=== PATIENT | female | born 1945 | race Caucasian/White ===

== ENCOUNTER 2022-01-04 13:54 | Emergency (ER) | payer MEDICARE, OTHER ==
[~2022-01-04] VITALS: Ht 162.6 cm; Wt 72.1 kg
[2022-01-04] MEDS ORDERED: GLIPIZIDE-METF1 EAC2 PO (15:05)
[2022-01-04] MEDS ORDERED: [UNRECOGNIZED DRUG - OTHER] PO (15:05)
[2022-01-04] MEDS ORDERED: LIPITOR20 MG PO (15:05)
[2022-01-04] MEDS ORDERED: OSTEO BI-FLEX1 EAC2 PO (15:05)
[2022-01-04] MEDS ORDERED: ATIVAN1 MG PO (15:05)
[2022-01-04] MEDS ORDERED: DICLOFENAC SOD100 GM TOP (15:05)
[2022-01-04] MEDS ORDERED: ACETAMINOPHEN-1 EAC4 PO ×3 (15:05→15:36)
[2022-01-04] MEDS ORDERED: BACLOFEN10 MG PO (15:05)
[2022-01-04] MEDS ORDERED: DEXTROAMPHETAMI10 M1 PO (15:05)
[2022-01-04] MEDS ORDERED: NEURONTIN100 MG PO (15:05)
[2022-01-04] MEDS ORDERED: MAGNESIUM 500 MG PO (15:05)
== END 2022-01-04 16:09 | disposition home or self-care (01) ==
LOC: FSED 14:25
DX: S70.02XA Contusion of left hip, initial encounter (principal); W01.0XXA Fall on same level from slipping, tripping and stumbling without subsequent striking against object, initial encounter; Y93.01 Activity, walking, marching and hiking; Y92.008 Other place in unspecified non-institutional (private) residence as the place of occurrence of the external cause; E11.9 Type 2 diabetes mellitus without complications; E78.5 Hyperlipidemia, unspecified; K21.9 Gastro-esophageal reflux disease without esophagitis; F41.9 Anxiety disorder, unspecified; Z85.3 Personal history of malignant neoplasm of breast
CPT/HCPCS: 72100; 99283